=== PATIENT | male | born 1960 | race Caucasian/White ===

== ENCOUNTER → 2016-06-01 | Outpatient (CLI) | payer OTHER | LOC: CT 08:00 | DX: R91.1 Solitary pulmonary nodule (principal); E04.2 Nontoxic multinodular goiter | CPT/HCPCS: 71250 ==

== ENCOUNTER → 2016-06-15 | Outpatient (CLI) | payer OTHER | LOC: KOH-I 14:39 | DX: E04.0 Nontoxic diffuse goiter (principal); E04.2 Nontoxic multinodular goiter | CPT/HCPCS: 76536 ==

== ENCOUNTER → 2016-07-13 | Outpatient (CLI) | payer OTHER | LOC: US 09:19 | DX: E04.2 Nontoxic multinodular goiter (principal) | CPT/HCPCS: 10022; 76536 ==

== ENCOUNTER 2020-03-29 14:54 | Emergency (ER) | payer OTHER ==
[~2020-03-29 14:54] MED LIST: OMNICEF 300 MG300 MG PO; TAMIFLU75 MG PO; ZITHROMAX500 MG PO
[2020-03-29] MEDS ORDERED: AUGMENTIN 875-1 EACH PO (15:23)
== END 2020-03-29 15:52 | disposition home or self-care (01) ==
LOC: ER1 14:54
DX: J01.90 Acute sinusitis, unspecified (principal)
CPT/HCPCS: 96372; 99283; J1100

== ENCOUNTER 2021-03-22 09:05 | Inpatient (IN) | payer OTHER ==
[~2021-03-22] VITALS: Ht 177.8 cm; Wt 74.8 kg
[~2021-03-22 09:05] MED LIST changes: +AUGMENTIN 875-1 EACH PO; +PREDNISONE10 M1 PO
[2021-03-22 12:53] LABS: HEMOGLOBIN 15.6 gm/dl (14.0-17.5); RED BLOOD COUNT 5.02 M/UL (4.20-5.50); WHITE BLOOD COUNT 14.5 K/UL (4.5-11.0)
[2021-03-23 04:23] LABS: HEMOGLOBIN 14.4 gm/dl (14.0-17.5); RED BLOOD COUNT 4.7 M/UL (4.20-5.50)
[2021-03-23 04:31] LABS: WHITE BLOOD COUNT 18.9 K/UL (4.5-11.0)
[2021-03-23 04:44] LABS: BUN/CREATININE RATIO 17 (0-10)
[2021-03-23] MEDS ORDERED: ZYRTEC10 MG PO (13:38)
[2021-03-24] MEDS ORDERED: AUGMENTIN 875-1 EACH PO ×2 (13:36→14:19)
[2021-03-24] MEDS ORDERED: ZOFRAN 4 MG TAB4 MG PO (13:53)
== END 2021-03-24 14:35 | disposition home or self-care (01) | DRG 392 ==
LOC: ER1 09:05 → CDU 16:21 → MED SURG 4 03-23 16:22
PROVIDERS: Physician Assistant; ADMIT Surgery
DX: K57.20 Diverticulitis of large intestine with perforation and abscess without bleeding (principal); N43.3 Hydrocele, unspecified; Z20.822 Contact with and (suspected) exposure to COVID-19; K40.90 Unilateral inguinal hernia, without obstruction or gangrene, not specified as recurrent; N40.1 Benign prostatic hyperplasia with lower urinary tract symptoms; K59.00 Constipation, unspecified
CPT/HCPCS: 80048; 80053; 81001; 83690; 85025; 96374; 96375; 96376; 99285; C9113; J2270; J2405; J2543; Q9967; U0002

== ENCOUNTER → 2021-04-17 | Outpatient (CLI) | payer OTHER ==
[~2021-04-17] MED LIST changes: +ZOFRAN 4 MG TAB4 MG PO; +ZYRTEC10 MG PO
== END ==
LOC: CT 11:57
DX: K57.32 Diverticulitis of large intestine without perforation or abscess without bleeding (principal); R93.3 Abnormal findings on diagnostic imaging of other parts of digestive tract
CPT/HCPCS: Q9967

== ENCOUNTER → 2021-05-22 | Outpatient (CLI) | payer OTHER | LOC: CT 09:53 | DX: K57.10 Diverticulosis of small intestine without perforation or abscess without bleeding (principal) | CPT/HCPCS: 36415; 82565; Q9967 ==

== ENCOUNTER → 2021-09-29 | Outpatient (CLI) | payer OTHER | LOC: RAD 12:08 | DX: M54.6 Pain in thoracic spine (principal); C44.41 Basal cell carcinoma of skin of scalp and neck | CPT/HCPCS: 72070 ==

== ENCOUNTER → 2021-10-06 | Outpatient (CLI) | payer OTHER | LOC: WCC 07:40 | DX: C44.41 Basal cell carcinoma of skin of scalp and neck (principal); M10.00 Idiopathic gout, unspecified site; K57.92 Diverticulitis of intestine, part unspecified, without perforation or abscess without bleeding; Z92.21 Personal history of antineoplastic chemotherapy; Z79.899 Other long term (current) drug therapy | CPT/HCPCS: 87070; 87077; 87186; 87205 ==

== ENCOUNTER → 2021-10-14 | Outpatient (CLI) | payer OTHER | LOC: WCC 07:30 | DX: C44.41 Basal cell carcinoma of skin of scalp and neck (principal); M10.00 Idiopathic gout, unspecified site; K57.92 Diverticulitis of intestine, part unspecified, without perforation or abscess without bleeding; Z92.21 Personal history of antineoplastic chemotherapy; Z79.899 Other long term (current) drug therapy ==

== ENCOUNTER → 2021-10-28 | Outpatient (CLI) | payer OTHER | END | disposition home or self-care (01) | LOC: WCC 07:07 | DX: C44.41 Basal cell carcinoma of skin of scalp and neck (principal); M10.00 Idiopathic gout, unspecified site; K57.92 Diverticulitis of intestine, part unspecified, without perforation or abscess without bleeding; Z92.21 Personal history of antineoplastic chemotherapy; Z79.899 Other long term (current) drug therapy ==

== ENCOUNTER → 2021-11-11 | Outpatient (CLI) | payer OTHER | LOC: WCC 08:07 | DX: C44.41 Basal cell carcinoma of skin of scalp and neck (principal); M10.00 Idiopathic gout, unspecified site; K57.92 Diverticulitis of intestine, part unspecified, without perforation or abscess without bleeding; Z92.21 Personal history of antineoplastic chemotherapy; Z79.899 Other long term (current) drug therapy ==

== ENCOUNTER → 2021-11-25 | Outpatient (CLI) | payer OTHER | LOC: WCC 08:46 | DX: C44.41 Basal cell carcinoma of skin of scalp and neck (principal); M10.00 Idiopathic gout, unspecified site; K57.92 Diverticulitis of intestine, part unspecified, without perforation or abscess without bleeding; Z92.21 Personal history of antineoplastic chemotherapy ==

== ENCOUNTER → 2021-12-09 | Outpatient (CLI) | payer OTHER | END | disposition home or self-care (01) | LOC: WCC 08:26 | DX: C44.41 Basal cell carcinoma of skin of scalp and neck (principal); M10.00 Idiopathic gout, unspecified site; K57.92 Diverticulitis of intestine, part unspecified, without perforation or abscess without bleeding; Z92.21 Personal history of antineoplastic chemotherapy ==

== ENCOUNTER → 2021-12-09 | Outpatient (CLI) | payer OTHER | LOC: MRI 07:57 | DX: C44.41 Basal cell carcinoma of skin of scalp and neck (principal) | CPT/HCPCS: 70553; A9577 ==